=== PATIENT | male | born 1995 | race Caucasian/White ===

== ENCOUNTER 2018-05-23 14:05 | Emergency (ER) | payer MEDICAID, OTHER ==
--- NOTE | 2018-05-23 14:49 | EDPHY ---
General Time Seen by Provider: 05/23/18 14:41 Narrative: CHIEF COMPLAINT: "I got strep throat" HISTORY OF PRESENT ILLNESS: Patient presents with complaints of "I got strep throat." He says that he has had a sore throat for 3-5 days and he is here asking for antibiotics. He has no complaints elsewhere at all. He says he has felt sick but has no cough, no runny nose, headache, neck pain, no chest pain, no abdominal urinary complaints. Has no fever. No rash. He has no other associated complaints or modifying factors and asking for antibiotic pills. MEDICAL/SURGICAL/SOCIAL HISTORY: Uncomplicated medical history. Previous strep pharyngitis infections. Currently homeless. Admits to tobacco use. Denies any alcohol or substance abuse. REVIEW OF SYSTEMS: Ten systems reviewed and are negative unless otherwise noted in the HPI EXAMINATION General Appearance: Alert, no distress. Well-developed well-nourished. Head: normocephalic, atraumatic ENT: Pupils equal round reactive. Airway is widely patent with midline uvula. There is moderate posterior erythema and exudate without any edema or asymmetry. Neck: Supple. No meningismus or rigidity. There are tender cervical lymph nodes. Cardiovascular: Pulses normal throughout with good signs of perfusion. Neurological: A&O, sensory symmetric, strength symmetric Skin: Warm and dry, no rash no petechiae. No purpura cellulitis. Extremities: Nontender, no pedal edema MDM: 2:45 p.m. Acute pharyngitis without any other systematic complaints. Does have some tenderness cervical lymphadenopathy. No meningismus. Vital signs are within normal limits. He would like to be treated without any testing performed. I do feel this is reasonable given his lack of respiratory symptoms. All treated with antibiotics for 1 week. I have provided the information for [facility] for him. We discussed ED precautions. He is comfortable this plan and discharged home stable condition. SUPERVISION: This patient was independently evaluated without direct involvement of or examination by the attending physician. ED Precautions: Worsening pain. Erythema, edema, cyanosis, pallor, paresthesia or anesthesia. - History Smoking Status: Current every day smoker - Objective Vital Signs: Initial Vital Signs Temperature (C) 98.2 F 05/23/18 14:08 Heart Rate 90 05/23/18 14:08 Respiratory Rate 16 05/23/18 14:08 Blood Pressure 99/65 L 05/23/18 14:08 O2 Sat (%) 97 05/23/18 14:08 O2 Delivery Mode Room Air Allergies/Adverse Reactions: No Known Allergies Allergy (Unverified 05/23/18 14:10) Home Medications: Medication Instructions Recorded Amoxicillin Trihydrate [Amoxil] 1,000 mg PO DAILY #14 cap 05/23/18 Laboratory Results: 05/23/18 05/23/18 Unknown 14:11 Group A Strep Screen NEGATIVE (NEGATIVE) Group A Strep DNA Pending Departure - Departure Disposition: Home, Routine, Self-Care Clinical Impression: Acute pharyngitis Qualifiers: Pharyngitis/tonsillitis etiology: unspecified etiology Qualified Code(s): J02.9 - Acute pharyngitis, unspecified Acute tonsillitis Qualifiers: Pharyngitis/tonsillitis etiology: unspecified etiology Qualified Code(s): J03.90 - Acute tonsillitis, unspecified Condition: Good Instructions: Pharyngitis (ED), Tonsillitis (ED) Additional Instructions: 1. Medication as prescribed to completion. Take with some food or small snack 2. Contact [facility] or primary care physician to be seen outpatient this week 3. Return here for any neck pain or stiffness, fever, worsening sore throat, difficulty breathing or swallowing 4. recommend smoking cessation Referrals: Ester Sanderson MD [[facility] [place] Primary Care Provider] - As per Instructions [facility],. [Clinic] - As per Instructions Prescriptions: Amoxicillin Trihydrate [Amoxil] 1,000 mg PO DAILY #14 cap
[2018-05-23 15:41] VITALS: BP 102/78
--- NOTE | 2018-05-23 16:03 | ASMTCMCOM ---
CM Note CM Note Notes: Pt presented to the Emergency Department with complaints of "strep throat." Pt is currently homeless, new to [facility]. Pt denies having insurance or financial resources. Amoxicillin Trihydrate (Amoxil) 500 mg capsules, 1000 mg daily x seven days, dispense 14, no refills, filled through the medication assistance program (MAP). Per Scott in the pharmacy, total cost $0.98. Pt to discharge back to streets. CM available for any further issues or concerns. Date Signed: 05/23/2018 04:02 PM Electronically Signed By:Jodi Tian RN
== END 2018-05-23 15:41 | disposition home or self-care (01) ==
DX: J03.90 Acute tonsillitis, unspecified (principal); F17.200 Nicotine dependence, unspecified, uncomplicated